=== PATIENT | male | born 1965 | race Caucasian/White ===

== ENCOUNTER 2016-10-31 14:08 | Inpatient (IN) | payer OTHER ==
[~2016-10-31] VITALS: Ht 170.2 cm; Wt 124.6 kg
--- NOTE | ~2016-10-31 | EKG ---
[address] [place] [address] ELECTROCARDIOGRAM REPORT Name: FAY CHAVEZ Room #: 236-P ADM IN M.R.#: [id number] Admission: 10/31/16 Attend Phys: Reynaldo Arguello MD Discharge: Date of : 63 Report #: [id number] THIS REPORT FOR: //name// [facility] Test Date: 2016-10-31 Test Time: 15:37:41 Pat Name: FAY CHAVEZ Department: Room: [facility] Gender: M [employer] Repairer: Una WILCOX : 1965 Requested By: Bebeto Deluna Order Number: [id number] MD: Dominic Garibay Measurements Intervals [place] Rate: 71 P: 14 [place]: 193 QRS: 50 QRSD: 106 T: 53 QT: 399 QTc: 434 Interpretive Statements Sinus rhythm Anteroseptal infarct, age indeterminate No previous ECG available for comparison Electronically Signed On 11-01-2016 17:26:32 CDT by Dominic Garibay [email or web address] <ELECTRONICALLY SIGNED> By: Dominic Garibay MD, [facility] 11/01/16 1726 1537 36 Dominic Garibay MD, FACC /EPI
--- NOTE | ~2016-10-31 | 2DMMODE ---
[facility] [address] [facility] [place] [address] 2 D/M-MODE ECHOCARDIOGRAM Name: KATHYFAY CHILO Room #: 205-P ADM IN M.R.#: [id number] Admission: 10/31/16 Attend Phys: William Patten MD Discharge: Date of : 63 Date of Service: 11/05/16 0955 Report #: [id number] THIS REPORT FOR: //name// APPROVED REPORT Study performed: 11/05/2016 08:27:21 EXAM: Comprehensive 2D, Doppler, and color-flow Echocardiogram Patient Location: Echo lab Room #: 205 Status: routine Other Information Study Quality: Adequate Technically limited study due to body habitus and post op bandages. Indications CAD, s/p CABG 11/01/16. Hx: HTN, HLP, DM, morbid obesity 2D Dimensions RVDd: 40.95 mm LVEF(%): 57.87 (>50%) IVSd: 13.32 (7-11mm) LVOT Diam: 21.76 (18-24mm) LVDd: 39.39 mm PWd: 13.15 (7-11mm) Ascending Ao: 31.63 (22-36mm) LVDs: 27.56 (25-40mm) Aortic Root: 33.43 mm Matthews's LVEF: 57.87 % Volumes Left Atrial Volume (Systole) Single Plane 4CH: 54.67 mL Single Plane 2CH: 36.76 mL Aortic Valve AoV Peak Mateo.: 1.84 m/s AO Peak Gr.: 13.52 mmHg LVOT Max P.33 mmHg LVOT Max V: 1.35 m/s MARTINEZ Vmax: 2.74 cm2 Mitral Valve E/A Ratio: 1.5 MV Decel. Time: 157.39 ms MV E Max Mateo.: 1.14 m/s MV A Mateo.: 0.77 m/s MV PHT: 45.64 ms [facility] [place] [address] 2 D/M-MODE ECHOCARDIOGRAM Name: FAY CHAVEZNE Room #: 205-P [facility] IN [facility].#: [id number] Admission: 10/31/16 Attend Phys: William Patten MD Discharge: Date of : 63 Date of Service: 11/05/16 0955 Report #: [id number] Pulmonary Valve PV Peak Mateo.: 1.44 m/s PV Peak Gr.: 8.32 mmHg Tricuspid Valve TR Peak Mateo.: 2.03 m/s TR Peak Gr.: 16.50 mmHg Left Ventricle The left ventricle is normal size. Regional wall motion is not well visualized but grossly normal. Mild concentric left ventricular hypertrophy. Left ventricular systolic function is normal. LVEF is 60-65%. The left ventricular diastolic function is normal. Right Ventricle The right ventricle is normal size. The right ventricular systolic function is normal. Atria The left atrium size is normal. The right atrium size is normal. Aortic Valve The aortic valve is normal in structure. No aortic regurgitation is present. There is no aortic valvular stenosis. Mitral Valve The mitral valve is normal in structure. No mitral regurgitation. No evidence of mitral valve stenosis. Tricuspid Valve The tricuspid valve is normal in structure. There is trace tricuspid regurgitation. Estimated PAP is 17mmHg plus the right atrial pressure. Pulmonic Valve Pulmonic valve is not well visualized. Great Vessels The aortic root is normal in size. The ascending aorta is normal in size. IVC is not well visualized. Pericardium There is no pericardial effusion. <Conclusion> [address] [address] 2 D/M-MODE ECHOCARDIOGRAM Name: KATHYFAY CHILO Room #: 205-P [facility] IN ..#: [id number] Admission: 10/31/16 Attend Phys: William Patten MD Discharge: Date of : 63 Date of Service: 11/05/16 0955 Report #: [id number] Left ventricular systolic function is normal. Regional wall motion is not well visualized but grossly normal. LVEF is 60-65%. The aortic valve is normal in structure. No aortic regurgitation or stenosis The mitral valve is normal in structure. No insufficiency There is no pericardial effusion. <ELECTRONICALLY SIGNED> By: Dominic Garibay MD, [facility] 11/05/1655 4 4 Dominic Garibay MD, [facility] /INF
--- NOTE | ~2016-10-31 | EKG ---
[address] [place] [place] [address] ELECTROCARDIOGRAM REPORT Name: FAY CHAVEZ Room #: 236-P ADM IN M.R.#: [id number] Admission: 10/31/16 Attend Phys: William Patten MD Discharge: Date of : 63 Report #: [id number] THIS REPORT FOR: //name// [facility] Test Date: 2016-11-02 Test Time: 07:41:14 Pat Name: FAY CHAVEZ Department: Room: 236 P Gender: M Bobbin Winder: Reina OJEDA : 1965 Requested By: Fide Kuhn Order Number: [id number] MD: Dominic Garibay Measurements Intervals [place] Rate: 91 P: 13 [place]: 176 QRS: 12 QRSD: 87 T: 56 QT: 331 QTc: 408 Interpretive Statements Sinus rhythm Minimal ST elevation, consider pericarditis Compared to ECG 10/31/2016 15:37:41 ST (T wave) deviation now present Electronically Signed On 11-02-2016 9:06:36 CDT by Dominic Garibay [email or web address] <ELECTRONICALLY SIGNED> By: Dominic Garibay MD, [facility] 11/02/16 0906 0 Dominic Garibay MD, [facility] /EPI
--- NOTE | ~2016-10-31 | EKG ---
[address] [place] [address] ELECTROCARDIOGRAM REPORT Name: FAY CHAVEZ Room #: 236-P ADM IN M.R.#: [id number] Admission: 10/31/16 Attend Phys: William Patten MD Discharge: Date of : 63 Report #: [id number] THIS REPORT FOR: //name// [facility] Test Date: 2016-11-01 Test Time: 16:20:14 Pat Name: FAY CHAVEZ Department: Room: 236 Gender: M Director Of Admissions: Una WILCOX : 1965 Requested By: Fide Kuhn Order Number: [id number] MD: Dominic Garibay Measurements Intervals [place] Rate: 78 P: 13 [place]: 187 QRS: 35 QRSD: 95 T: -7 QT: 455 QTc: 519 Interpretive Statements Sinus rhythm Anteroseptal infarct, age indeterminate Nonspecific ST and T wave abnormality Prolonged QT interval No previous ECG available for comparison Electronically Signed On 11-02-2016 8:59:59 CDT by Dominic Garibay [email or web address] <ELECTRONICALLY SIGNED> By: Dominic Garibay MD, [facility] 11/02/16 0859 1620 1620 Dominic Garibay MD, [facility] /EPI
[~2016-10-31 14:08] MED LIST: BUSPAR PO; BUSPIRONE HCL10 MG PO; CELEXA40 MG PO; CLONAZEPAM PO; HUMALOG; HYDROCODON-ACE1 EAC1 PO; HYDROCODON-ACE1 EAC5 PO; KAPIDEX60 MG PO; LAMICTAL XR100 MG PO; LANTUS SUBQ; LITHATE5 MG PO; MEDROL DOSPAK21 TA1 PO; NABUMETONE 500500 M1 PO; NEURONTIN 300M300 M2 PO; PERCOCET 10-321 EACH PO; PERCOCET 5-3251 EACH PO; PERCOCET 7.5-31 EACH PO; PREDNISONE 20 M20 MG; PROTONIX40 MG PO; ZANTAC 150MG T150 MG PO
[2016-10-31 15:08] VITALS: BP 145/79
[2016-10-31 17:12] LABS: ABG SAMPLE TYPE ARTERIAL; BE(vivo) 1.2 mmol/L (-2 to +3); HCO3 25.9 mmol/L (22.0-26.0); LACTATE 2.06 mmol/L (0.5-2.0); O2(CT) 19.6 mL/dL (15.0-23.0); O2Hb 92.9 % (92.0-98.0); PCO2 41.5 mmHg (35.0-45.0); PO2 67.2 mmHg (80.0-100.0); pH 7.413 (7.360-7.450); sO2 93.6 % (92.0-98.0); tCO2 27.2 mmol/L (24.0-30.0)
[2016-10-31 17:13] LABS: STICK SITE L.RADIAL
[2016-10-31 18:15] LABS: HEMATOCRIT 41.6 % (42.0-52.0); HEMOGLOBIN 14.2 gm/dL (14.0-18.0); MCH 29.3 pg (26.0-34.0); MCHC 34.2 g/dL (28.0-37.0); MCV 85.6 fL (80.0-100.0); RBC 4.86 mil/uL (4.50-6.00); RDW 13.9 % (10.5-14.5); WBC 8.2 thou/uL (4.0-11.0)
[2016-10-31 18:23] LABS: POTASSIUM 3.7 mmol/L (3.5-5.1)
[2016-10-31 18:28] LABS: ALBUMIN 3.5 g/dL (3.4-5.0); TOTAL BILIRUBIN 0.4 mg/dL (<0.1-1.0); TOTAL PROTEIN 7.9 g/dL (6.4-8.2)
[2016-10-31 18:30] LABS: APTT 25.6 Seconds (24.5-32.8); PROTIME 9.8 Seconds (9.3-11.4)
[2016-10-31 19:52] VITALS: BP 153/87
[2016-10-31 22:14] VITALS: BP 153/87
[2016-11-01 00:44] VITALS: BP 134/82
[2016-11-01 04:00] VITALS: BP 136/81
[2016-11-01 04:05] LABS: GLYCOHEMOGLOBIN (HGB A1C) 8.1 % (4.8-5.6)
[2016-11-01 05:16] LABS: URINE BILIRUBIN NEGATIVE (Negative); URINE BLOOD NEGATIVE (Negative); URINE COLOR YELLOW; URINE GLUCOSE-RANDOM* TRACE (Negative); URINE KETONES NEGATIVE (Negative); URINE LEUKOCYTES-REFLEX NEGATIVE (Negative); URINE PROTEIN (DIPSTICK) NEGATIVE (Negative); URINE SPECIFIC GRAVITY 1.015 (1.003-1.035); URINE UROBILINOGEN 0.2 E.U./dl (0.2-1.0)
[2016-11-01 06:17] VITALS: BP 139/77; BP 143/73
[2016-11-01 14:32] LABS: POC BE 0 mmol/L (-2.0 to +3.0); POC FiO2 100 %; POC GLUCOSE 112 mg/dL (70-99); POC HCO3 24.4 mmol/L (22.0-26.0); POC HEMOGLOBIN 11.2 g/dL (14.0-18.0); POC POTASSIUM 3.9 mmol/L (3.5-5.1); POC SODIUM 140 mmol/L (136-145); POC pCO2 39.2 mmHg (35.0-45.0); POC pH 7.402 (7.360-7.450)
[2016-11-01 14:32] LABS: POC BE 2 mmol/L (-2.0 to +3.0); POC CA IONIZED 4.4 mg/dL (4.5-5.3); POC FiO2 90 %; POC GLUCOSE 162 mg/dL (70-99); POC HCO3 26.9 mmol/L (22.0-26.0); POC HEMOGLOBIN 10.5 g/dL (14.0-18.0); POC POTASSIUM 3.9 mmol/L (3.5-5.1); POC SODIUM 137 mmol/L (136-145); POC pCO2 46.8 mmHg (35.0-45.0); POC pH 7.367 (7.360-7.450)
[2016-11-01 14:32] LABS: POC BE 3 mmol/L (-2.0 to +3.0); POC CA IONIZED 4.4 mg/dL (4.5-5.3); POC FiO2 100 %; POC GLUCOSE 153 mg/dL (70-99); POC HCO3 28.6 mmol/L (22.0-26.0); POC HEMOGLOBIN 10.2 g/dL (14.0-18.0); POC POTASSIUM 4.1 mmol/L (3.5-5.1); POC SODIUM 139 mmol/L (136-145); POC pCO2 51.9 mmHg (35.0-45.0); POC pH 7.349 (7.360-7.450)
[2016-11-01 14:32] LABS: POC BE 4 mmol/L (-2.0 to +3.0); POC CA IONIZED 4.8 mg/dL (4.5-5.3); POC FiO2 100 %; POC GLUCOSE 213 mg/dL (70-99); POC HCO3 28.2 mmol/L (22.0-26.0); POC HEMOGLOBIN 12.2 g/dL (14.0-18.0); POC SODIUM 136 mmol/L (136-145); POC pCO2 42.2 mmHg (35.0-45.0); POC pH 7.432 (7.360-7.450)
[2016-11-01 14:32] LABS: POC BE -1 mmol/L (-2.0 to +3.0); POC CA IONIZED 4.4 mg/dL (4.5-5.3); POC FiO2 100 %; POC GLUCOSE 161 mg/dL (70-99); POC HCO3 25.5 mmol/L (22.0-26.0); POC HEMOGLOBIN 10.9 g/dL (14.0-18.0); POC POTASSIUM 3.8 mmol/L (3.5-5.1); POC SODIUM 136 mmol/L (136-145); POC pCO2 51.8 mmHg (35.0-45.0); POC pH 7.301 (7.360-7.450)
[2016-11-01 14:32] LABS: POC BE 4 mmol/L (-2.0 to +3.0); POC CA IONIZED 4.4 mg/dL (4.5-5.3); POC FiO2 100 %; POC GLUCOSE 150 mg/dL (70-99); POC HCO3 29.4 mmol/L (22.0-26.0); POC HEMOGLOBIN 10.2 g/dL (14.0-18.0); POC POTASSIUM 4.2 mmol/L (3.5-5.1); POC SODIUM 138 mmol/L (136-145); POC pCO2 54.1 mmHg (35.0-45.0); POC pH 7.343 (7.360-7.450)
[2016-11-01 14:32] LABS: POC BE 3 mmol/L (-2.0 to +3.0); POC CA IONIZED 4.5 mg/dL (4.5-5.3); POC FiO2 100 %; POC GLUCOSE 166 mg/dL (70-99); POC HCO3 29.1 mmol/L (22.0-26.0); POC HEMOGLOBIN 10.2 g/dL (14.0-18.0); POC POTASSIUM 3.8 mmol/L (3.5-5.1); POC SODIUM 135 mmol/L (136-145); POC pCO2 56.2 mmHg (35.0-45.0); POC pH 7.322 (7.360-7.450)
[2016-11-01 14:32] LABS: POC BE 1 mmol/L (-2.0 to +3.0); POC CA IONIZED 4.2 mg/dL (4.5-5.3); POC FiO2 80 %; POC GLUCOSE 167 mg/dL (70-99); POC HCO3 25.7 mmol/L (22.0-26.0); POC HEMOGLOBIN 9.9 g/dL (14.0-18.0); POC POTASSIUM 3.7 mmol/L (3.5-5.1); POC SODIUM 133 mmol/L (136-145); POC pH 7.374 (7.360-7.450)
[2016-11-01 14:32] LABS: POC BE -1 mmol/L (-2.0 to +3.0); POC FiO2 100 %; POC GLUCOSE 136 mg/dL (70-99); POC HCO3 24.4 mmol/L (22.0-26.0); POC HEMOGLOBIN 9.5 g/dL (14.0-18.0); POC POTASSIUM 3.6 mmol/L (3.5-5.1); POC SODIUM 139 mmol/L (136-145); POC pCO2 40.2 mmHg (35.0-45.0); POC pH 7.391 (7.360-7.450)
[2016-11-01 14:32] LABS: POC BE 1 mmol/L (-2.0 to +3.0); POC CA IONIZED 4.4 mg/dL (4.5-5.3); POC FiO2 100 %; POC GLUCOSE 178 mg/dL (70-99); POC HCO3 25.2 mmol/L (22.0-26.0); POC HEMOGLOBIN 12.2 g/dL (14.0-18.0); POC POTASSIUM 3.8 mmol/L (3.5-5.1); POC SODIUM 137 mmol/L (136-145); POC pCO2 39.3 mmHg (35.0-45.0); POC pH 7.414 (7.360-7.450)
[2016-11-01 15:18] LABS: HEMATOCRIT 36.9 % (42.0-52.0); HEMOGLOBIN 12.3 gm/dL (14.0-18.0); MCH 28.7 pg (26.0-34.0); MCHC 33.3 g/dL (28.0-37.0); MCV 86.4 fL (80.0-100.0); RBC 4.27 mil/uL (4.50-6.00); RDW 13.9 % (10.5-14.5); WBC 22.5 thou/uL (4.0-11.0)
[2016-11-01 15:23] LABS: ABG SAMPLE TYPE ARTERIAL; BE(vivo) -2.8 mmol/L (-2 to +3); HCO3 22.5 mmol/L (22.0-26.0); LACTATE 2.55 mmol/L (0.5-2.0); O2Hb 95.8 % (92.0-98.0); PCO2 41.1 mmHg (35.0-45.0); PO2 98.6 mmHg (80.0-100.0); pH 7.356 (7.360-7.450); sO2 97.2 % (92.0-98.0); tCO2 23.8 mmol/L (24.0-30.0)
[2016-11-01 15:24] LABS: STICK SITE LINE; TIDAL VOLUME 700 ml
[2016-11-01 15:27] LABS: CALCIUM 8.2 mg/dL (8.5-10.1); CREATININE 0.9 mg/dL (0.7-1.3); MAGNESIUM 2.4 mg/dL (1.8-2.4); POTASSIUM 3.9 mmol/L (3.5-5.1)
[2016-11-01 15:33] LABS: CHOLESTEROL 128 mg/dL (<200); HDL CHOLESTEROL 24 mg/dL (>40); LDL CHOLESTEROL 67 mg/dL (<100); TC:HDL 5.3 Ratio (Not establshd); TRIGLYCERIDE 186 mg/dL (<150); VLDL 37 mg/dL (<40)
[2016-11-01 16:46] LABS: ABG SAMPLE TYPE ARTERIAL; BE(vivo) -4.1 mmol/L (-2 to +3); HCO3 21.9 mmol/L (22.0-26.0); LACTATE 3.63 mmol/L (0.5-2.0); O2(CT) 17.4 mL/dL (15.0-23.0); O2Hb 93.7 % (92.0-98.0); PCO2 43.4 mmHg (35.0-45.0); PO2 81.3 mmHg (80.0-100.0); STICK SITE LINE; sO2 95.1 % (92.0-98.0); tCO2 23.2 mmol/L (24.0-30.0)
[2016-11-01 16:47] LABS: TIDAL VOLUME 700 ml
[2016-11-01 17:38] LABS: ABG SAMPLE TYPE ARTERIAL; BE(vivo) -6.1 mmol/L (-2 to +3); HCO3 20.6 mmol/L (22.0-26.0); O2(CT) 17.7 mL/dL (15.0-23.0); O2Hb 93.6 % (92.0-98.0); PCO2 44.9 mmHg (35.0-45.0); PO2 82.1 mmHg (80.0-100.0); STICK SITE LINE; pH 7.279 (7.360-7.450); sO2 94.7 % (92.0-98.0)
[2016-11-01 17:39] LABS: Pressure Support 8 cm H20
[2016-11-01 19:49] LABS: HEMATOCRIT 36.3 % (42.0-52.0); HEMOGLOBIN 12.1 gm/dL (14.0-18.0); MCHC 33.4 g/dL (28.0-37.0); MCV 86.9 fL (80.0-100.0); PLATELET COUNT 205 thou/uL (150-400); RBC 4.18 mil/uL (4.50-6.00); RDW 13.8 % (10.5-14.5)
[2016-11-01 19:50] LABS: MANUAL DIFF YES
[2016-11-01 20:02] LABS: CALCIUM 8.3 mg/dL (8.5-10.1); CREATININE 1.3 mg/dL (0.7-1.3); POTASSIUM 3.4 mmol/L (3.5-5.1)
[2016-11-01 20:04] LABS: ABG SAMPLE TYPE ARTERIAL; BE(vivo) -3.8 mmol/L (-2 to +3); HCO3 21.2 mmol/L (22.0-26.0); O2(CT) 16.6 mL/dL (15.0-23.0); O2Hb 92.6 % (92.0-98.0); PCO2 38.5 mmHg (35.0-45.0); pH 7.359 (7.360-7.450); sO2 93.8 % (92.0-98.0); tCO2 22.4 mmol/L (24.0-30.0)
[2016-11-01 20:05] LABS: LACTATE 5.42 mmol/L (0.5-2.0); STICK SITE LINE
[2016-11-01 20:24] LABS: TOTAL CELL COUNT 100
[2016-11-01 20:25] LABS: ANISOCYTOSIS 1+; POLYCHROMASIA OCCASIONAL
[2016-11-02] VITALS (12 sets, daily range): BP systolic 114–147; BP diastolic 63–80
[2016-11-02 05:23] LABS: HEMATOCRIT 34.5 % (42.0-52.0); HEMOGLOBIN 11.7 gm/dL (14.0-18.0); MCH 29.4 pg (26.0-34.0); MCHC 33.8 g/dL (28.0-37.0); MCV 86.9 fL (80.0-100.0); RBC 3.97 mil/uL (4.50-6.00); RDW 14.3 % (10.5-14.5); WBC 19.4 thou/uL (4.0-11.0)
[2016-11-02 05:38] LABS: CALCIUM 8.2 mg/dL (8.5-10.1); CREATININE 0.9 mg/dL (0.7-1.3); MAGNESIUM 1.9 mg/dL (1.8-2.4); POTASSIUM 3.9 mmol/L (3.5-5.1)
[2016-11-03] VITALS (15 sets, daily range): BP systolic 116–163; BP diastolic 51–100
[2016-11-03 12:53] LABS: HEMATOCRIT 30.3 % (42.0-52.0); HEMOGLOBIN 10.1 gm/dL (14.0-18.0); MCH 29.2 pg (26.0-34.0); MCHC 33.4 g/dL (28.0-37.0); MCV 87.5 fL (80.0-100.0); PLATELET COUNT 169 thou/uL (150-400); RBC 3.46 mil/uL (4.50-6.00); WBC 16.4 thou/uL (4.0-11.0)
[2016-11-03 12:54] LABS: MANUAL DIFF YES
[2016-11-03 13:08] LABS: CALCIUM 8.5 mg/dL (8.5-10.1); CREATININE 1.1 mg/dL (0.7-1.3); POTASSIUM 4.1 mmol/L (3.5-5.1)
[2016-11-03 13:09] LABS: ABSOLUTE NEUTROPHILS 13.9 thou/uL (1.4-8.2); NUCLEATED RBCS 1 /100WBC; TOTAL CELL COUNT 100
[2016-11-03 13:10] LABS: LARGE PLATELETS RARE
[2016-11-04 04:12] LABS: HEMATOCRIT 33.4 % (42.0-52.0); HEMOGLOBIN 11.2 gm/dL (14.0-18.0); MCH 29.2 pg (26.0-34.0); MCHC 33.6 g/dL (28.0-37.0); MCV 86.7 fL (80.0-100.0); RBC 3.85 mil/uL (4.50-6.00); RDW 14.1 % (10.5-14.5); WBC 13.1 thou/uL (4.0-11.0)
[2016-11-04 04:32] VITALS: BP 158/67
[2016-11-04 04:37] LABS: CREATININE 0.7 mg/dL (0.7-1.3); POTASSIUM 3.8 mmol/L (3.5-5.1)
[2016-11-04 07:30] VITALS: BP 138/61
[2016-11-04 12:40] VITALS: BP 128/73
[2016-11-04 17:10] VITALS: BP 155/60
[2016-11-04 19:33] VITALS: BP 146/69
[2016-11-04 23:29] VITALS: BP 129/59
[2016-11-05 04:42] VITALS: BP 155/65
[2016-11-05 07:55] VITALS: BP 145/82; BP 156/75
[2016-11-05] MEDS ORDERED: ATORVASTATIN CA40 MG PO (11:49)
[2016-11-05] MEDS ORDERED: LOPRESSOR25 PO (11:49)
[2016-11-05] MEDS ORDERED: ASPIRIN325 PO (11:49)
[2016-11-05 12:07] VITALS: BP 156/75
== END 2016-11-05 12:20 | disposition home or self-care (01) | DRG 235 ==
LOC: 2N 14:08 → TBA 14:57 → 2N 14:57 → ICU 14:57 → TBA 11-01 08:40 → ICU 11-01 15:11 → 2N 11-03 11:16
PROVIDERS: Family Medicine; Hospitalist; Nurse Practitioner; Thoracic Surgery (Cardiothoracic Vascular Surgery)
DX: I21.4 Non-ST elevation (NSTEMI) myocardial infarction (principal); N17.0 Acute kidney failure with tubular necrosis; Z68.41 Body mass index [BMI] 40.0-44.9, adult; I25.10 Atherosclerotic heart disease of native coronary artery without angina pectoris; F31.9 Bipolar disorder, unspecified; G47.33 Obstructive sleep apnea (adult) (pediatric); F17.210 Nicotine dependence, cigarettes, uncomplicated; E66.9 Obesity, unspecified; M19.90 Unspecified osteoarthritis, unspecified site; G89.29 Other chronic pain; M54.9 Dorsalgia, unspecified; I25.5 Ischemic cardiomyopathy; I10 Essential (primary) hypertension; E78.2 Mixed hyperlipidemia; E11.65 Type 2 diabetes mellitus with hyperglycemia; K21.9 Gastro-esophageal reflux disease without esophagitis; Z82.49 Family history of ischemic heart disease and other diseases of the circulatory system; Z82.3 Family history of stroke; Z80.9 Family history of malignant neoplasm, unspecified; Z79.899 Other long term (current) drug therapy; Z90.49 Acquired absence of other specified parts of digestive tract
CPT/HCPCS: 10078; 10081; 47000; 47001; 47002; 47297; 50010; 50249; 50409; 50497; 50668; 51301; 52131; 52190; 52259; 53327; 53358; 54118; 56524; 56525; 56526; 56527; 56528; 56531; 56534; 56660; 56668; 56760; 56898; 57093; 62110; 62950; 64029; 65002; 65003; 65020; 65043; 65090; 83006